=== PATIENT | female | born 1985 | race Caucasian/White ===

== ENCOUNTER 2016-07-10 17:18 | Emergency (ER) | payer OTHER ==
--- NOTE | 2016-07-10 19:36 | ED ORDER SUMMARY ---
..... Patient: MAYCOL POTTS OrderSheet [facility] VisitID: [id number] [place] [address] 31y, F Registration Date/Time: 07/10/2016 ORDER SHEET Weight: 90.7 kg (stated) Allergies: No Known Drug Allergy GENERAL ORDERS: CBC w Diff Urgent (17:43 07/10/2016 EKoroleva P.A.-C) (Ack 17:56 LTapper) (18:16 SReitz R.N.) UA-Culture if indicated Urgent (17:43 07/10/2016 EKoroleva P.A.-C) (Ack 17:56 LTapper) (18:16 SReitz R.N.) CMP Urgent (17:43 07/10/2016 EKoroleva P.A.-C) (Ack 17:56 LTapper) (18:16 SReitz R.N.) Serum Quantitative Urgent (17:43 07/10/2016 EKoroleva P.A.-C) (Ack 17:56 LTapper) (18:16 SReitz R.N.) Type & Rh Urgent (17:43 07/10/2016 EKoroleva P.A.-C) (Ack 17:56 LTapper) (18:16 SReitz R.N.) Wet Prep (Cervix) (c) Urgent (19:03 07/10/2016 EKoroleva P.A.-C) (Ack 19:05 LTapper) (19:05 LTapper) GC/Chlamydia (Cervix) (c) Urgent (19:03 07/10/2016 EKoroleva P.A.-C) (Ack 19:05 LTapper) (19:05 LTapper) MEDICATION ORDERS: IV FLUIDS: ORDER SHEET NOTES: [Electronically signed by Jaclyn Lindsay R.N. (19:42 07/10/2016)] [Electronically signed by Lisa Thomas.A.-C (19:48 07/10/2016)] [Electronically locked/signed by Jaclyn Lindsay R.N. (19:42 07/10/2016)]
--- NOTE | 2016-07-10 19:36 | ED NURSING NOTES ---
Clinical Report - Nurses [facility] [address] [place] [address] 07/10/2016 17:19 Patient: MAYCOL POTTS TRIAGE Triage time 17:29. Acuity: LEVEL 3. Chief Complaint: ABDOMINAL CRAMPS and SPOTTING. Alert. No acute distress. SEPSIS SCREEN: Sepsis Screen. Negative (no infection suspected/documented). MARVEL COMA SCORE: Marvel Coma Scale: 15- eyes open spontaneously (4); best verbal response- oriented x 4 (5); best motor response- obeys commands (6). --17:33 Tanvi Ibanez R.N. 17:32 07/10/16. BP: 131/67. HR: 100. RR: 18. O2 saturation: 98%. Temp: 98.6 F. Pain level now 05/11. --17:33 Tanvi Ibanez R.N. Weight: 90.7 kg stated. Height/Length: 64 inches Per Patient. BMI: 34.3. --17:30 Tanvi Ibanez R.N. Medications Vitamins Oral. --17:31 Tanvi Ibanez R.N. Allergies No Known Drug Allergy. --17:31 Tanvi Ibanez R.N. History Arrived by private vehicle. Historian: patient. Unaccompanied. Primary physician (Sheela Tyson). Onset. (3 days ago cramping started and today spotting started). 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 PAST MEDICAL HX: Immunizations: up-to-date. Confirmed . In 1st trimester. confirmed with urine test. Has had care in clinic. G 2. P 1. Ab 0. SOCIAL HX: Never smoker. No alcohol use or drug use. ABUSE ASSESSMENT: Abuse assessment: The patient was asked "Do you feel safe in your home?" and "Has anyone hurt you or threatened to hurt you?". No report of abuse. SELF HARM ASSESSMENT: A self harm assessment was performed. The patient answered "no" to the question "Do you have thoughts of harming or killing yourself?" and "Have you recently had thoughts about harming or killing others?". NUTRITIONAL RISK ASSESSMENT: The nutritional risk assessment revealed no deficiencies. FUNCTIONAL ASSESSMENT: Functional assessment: no impairments noted. LEARNING NEEDS ASSESSMENT: The learning needs assessment revealed no barriers. --17:33 Tanvi Ibanez R.N. PROBLEMS: Nephropathy. Renal Colic. Abdominal Pain. Ureterolithiasis. UTI - Urinary Tract Infection. Urinary Calculi. Nephrolithiasis. --17:31 Tanvi Ibanez R.N. ADDITIONAL SURGERIES: . Kidney stint placed . Lithotripsy. Tonsillectomy. --17:31 Tanvi Ibanez R.N. Interventions ID band on patient. Ambulatory. --17:33 Tanvi Ibanez R.N. PHYSICAL ASSESSMENT Ambulatory to room. GENERAL / NEURO / PSYCH: Alert. Appears in no acute distress. HEENT: Mucous membranes are pink. RESPIRATORY: Respirations not labored. CVS: Capillary refill less than 2 seconds. GI / : Abdomen soft and nontender. SKIN: Skin is warm and dry. --17:33 Tanvi Ibanez R.N. NURSING PROGRESS NOTES Patient gowned. Head of bed elevated. Two patient identifiers checked. Call light placed in reach. Side rails up x 2. Bed placed in lowest position. Brakes of bed on. Patient ready for evaluation- chart flagged. --17:33 Tanvi Ibanez R.N. PELVIC EXAM: Pelvic exam performed by PA. Assisted by one nurse. Preparation: pelvic tray. Status post-procedure: she was stable. Total time of assist / procedure: 15 minutes. --17:42 Tanvi Ibanez R.N. PELVIC EXAM: Procedure. Specimens collected and sent to lab: GC, chlamydia and wet prep. --17:43 Tanvi Ibanez R.N. 18:10. Patient ID band checked for patient name, birthdate and medical record number: patient confirmed. Instructions provided to collect clean catch urine and patient verbalized understanding. Clean catch urine collected with return of yellow-colored clear urine; sample sent to lab for urinalysis. Specimen labeled in the presence of the patient. --18:16 Tanvi Ibanez R.N. Care transferred and report given (to Jaclyn Huerta RN). --19:10 Tanvi Ibanez R.N. 19:22 07/10/16. Patient waiting for disposition. --19:22 Jaclyn Lindsay R.N. 19:22 07/10/16. BP: 137/67. HR: 98. RR: 16. O2 saturation: 100%. Pain level now 0/10. --19:22 Jaclyn Lindsay R.N. DISPOSITION / DISCHARGE 19:42 07/10/16. Departure time: 19:42 Jul 10 2016. Condition at departure: improved and stable. The goals identified in the patient's plan of care were met. No learning barriers present. Discharge instructions provided and reviewed with the patient. Reviewed medication(s) side effects, precautions, dosing and course information. Prescription(s) given to the patient. Reviewed referral to an vessel liner for followup. Summary of care provided to patient via paper. Patient verbalized understanding. Written instructions provided in Lithuanian. The patient was discharged home and unaccompanied at time of discharge. She left the Emergency Department ambulatory and via private vehicle. Patient driving. --19:42 Jaclyn Lindsay R.N. 19:20 07/10/16. BP: 137/67. HR: 98. RR: 16. O2 saturation: 100%. Pain level now 0/10. 17:32 07/10/16. BP: 131/67. HR: 100. RR: 18. O2 saturation: 98%. Temp: 98.6 F. Pain level now 1/10. --19:42 Jaclyn Lindsay R.N. Locked/Released at 07/10/2016 19:42 by Jaclyn Lindsay R.N.
--- NOTE | 2016-07-10 19:36 | ED NURSING NOTES ---
Clinical Report - Nurses [facility] [address] [place] [address] 07/10/2016 17:19 Patient: MAYCOL POTTS TRIAGE Triage time 17:29. Acuity: LEVEL 3. Chief Complaint: ABDOMINAL CRAMPS and SPOTTING. Alert. No acute distress. SEPSIS SCREEN: Sepsis Screen. Negative (no infection suspected/documented). MARVEL COMA SCORE: Marvel Coma Scale: 15- eyes open spontaneously (4); best verbal response- oriented x 4 (5); best motor response- obeys commands (6). --17:33 Tanvi Ibanez R.N. 17:32 07/10/16. BP: 131/67. HR: 100. RR: 18. O2 saturation: 98%. Temp: 98.6 F. Pain level now 05/11. --17:33 Tanvi Ibanez R.N. Weight: 90.7 kg stated. Height/Length: 64 inches Per Patient. BMI: 34.3. --17:30 Tanvi Ibanez R.N. Medications Vitamins Oral. --17:31 Tanvi Ibanez R.N. Allergies No Known Drug Allergy. --17:31 Tanvi Ibanez R.N. History Arrived by private vehicle. Historian: patient. Unaccompanied. Primary physician (Sheela Tyson). Onset. (3 days ago cramping started and today spotting started). 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 PAST MEDICAL HX: Immunizations: up-to-date. Confirmed . In 1st trimester. confirmed with urine test. Has had care in clinic. G 2. P 1. Ab 0. SOCIAL HX: Never smoker. No alcohol use or drug use. ABUSE ASSESSMENT: Abuse assessment: The patient was asked "Do you feel safe in your home?" and "Has anyone hurt you or threatened to hurt you?". No report of abuse. SELF HARM ASSESSMENT: A self harm assessment was performed. The patient answered "no" to the question "Do you have thoughts of harming or killing yourself?" and "Have you recently had thoughts about harming or killing others?". NUTRITIONAL RISK ASSESSMENT: The nutritional risk assessment revealed no deficiencies. FUNCTIONAL ASSESSMENT: Functional assessment: no impairments noted. LEARNING NEEDS ASSESSMENT: The learning needs assessment revealed no barriers. --17:33 Tanvi Ibanez R.N. PROBLEMS: Nephropathy. Renal Colic. Abdominal Pain. Ureterolithiasis. UTI - Urinary Tract Infection. Urinary Calculi. Nephrolithiasis. --17:31 Tanvi Ibanez R.N. ADDITIONAL SURGERIES: . Kidney stint placed . Lithotripsy. Tonsillectomy. --17:31 Tanvi Ibanez R.N. Interventions ID band on patient. Ambulatory. --17:33 Tanvi Ibanez R.N. PHYSICAL ASSESSMENT Ambulatory to room. GENERAL / NEURO / PSYCH: Alert. Appears in no acute distress. HEENT: Mucous membranes are pink. RESPIRATORY: Respirations not labored. CVS: Capillary refill less than 2 seconds. GI / : Abdomen soft and nontender. SKIN: Skin is warm and dry. --17:33 Tanvi Ibanez R.N. NURSING PROGRESS NOTES Patient gowned. Head of bed elevated. Two patient identifiers checked. Call light placed in reach. Side rails up x 2. Bed placed in lowest position. Brakes of bed on. Patient ready for evaluation- chart flagged. --17:33 Tanvi Ibanez R.N. PELVIC EXAM: Pelvic exam performed by PA. Assisted by one nurse. Preparation: pelvic tray. Status post-procedure: she was stable. Total time of assist / procedure: 15 minutes. --17:42 Tanvi Ibanez R.N. PELVIC EXAM: Procedure. Specimens collected and sent to lab: GC, chlamydia and wet prep. --17:43 Tanvi Ibanez R.N. 18:10. Patient ID band checked for patient name, birthdate and medical record number: patient confirmed. Instructions provided to collect clean catch urine and patient verbalized understanding. Clean catch urine collected with return of yellow-colored clear urine; sample sent to lab for urinalysis. Specimen labeled in the presence of the patient. --18:16 Tanvi Ibanez R.N. Care transferred and report given (to Jaclyn Huerta RN). --19:10 Tanvi Ibanez R.N. 19:22 07/10/16. Patient waiting for disposition. --19:22 Jaclyn Lindsay R.N. 19:22 07/10/16. BP: 137/67. HR: 98. RR: 16. O2 saturation: 100%. Pain level now 0/10. --19:22 Jaclyn Lindsay R.N. DISPOSITION / DISCHARGE 19:42 07/10/16. Departure time: 19:42 Jul 10 2016. Condition at departure: improved and stable. The goals identified in the patient's plan of care were met. No learning barriers present. Discharge instructions provided and reviewed with the patient. Reviewed medication(s) side effects, precautions, dosing and course information. Prescription(s) given to the patient. Reviewed referral to an hydraulic miner blasting for followup. Summary of care provided to patient via paper. Patient verbalized understanding. Written instructions provided in Danish. The patient was discharged home and unaccompanied at time of discharge. She left the Emergency Department ambulatory and via private vehicle. Patient driving. --19:42 Jaclyn Lindsay R.N. 19:20 07/10/16. BP: 137/67. HR: 98. RR: 16. O2 saturation: 100%. Pain level now 0/10. 17:32 07/10/16. BP: 131/67. HR: 100. RR: 18. O2 saturation: 98%. Temp: 98.6 F. Pain level now 1/10. --19:42 Jaclyn Lindsay R.N. Locked/Released at 07/10/2016 19:42 by Jaclyn Lindsay R.N.
--- NOTE | 2016-07-10 19:36 | ED CLINICAL REPORT ---
Clinical Report - Physicians/Mid Levels [facility] [address] [place] [address] 07/10/2016 17:19 Patient: MAYCOL POTTS Time Seen: 17:27 Jul 10 2016. Arrived- By private vehicle. Historian- patient. HISTORY OF PRESENT ILLNESS Chief Complaint: VAGINAL BLEEDING. This started just prior to arrival and still present. The symptoms are described as mild. The patient has had pelvic pain (off/ on, none now). She has had pain with urination. No hematuria. Last normal menstrual period- May 31. ( with spotting/ light in nature, cramping, and some back pain (h/o back pain with nephrolithiasis), spotting and having to use less than a pad a day.). REVIEW OF SYSTEMS No nausea, diarrhea or headache. All systems otherwise negative, except as recorded above. SOCIAL HISTORY Never smoker. No alcohol use or drug use. ADDITIONAL NOTES The nursing notes have been reviewed. PHYSICAL EXAM Vital Signs: 07/10/2016 17:32 BP: 131/67. HR: 100. RR: 18. O2 saturation: 98%. Temp: 98.6 F. Appearance: Alert. HEENT: Normal external inspection. ENT: Pharynx normal. Neck: Neck supple. No thyromegaly. Respiratory: No respiratory distress. Breath sounds normal. Abdomen: Soft and nontender. Bowel sounds normal. No abdominal tenderness. : Speculum and bimanual exam performed. External inspection normal. Speculum exam normal. No vaginal bleeding. No herpes-like lesions. Bimanual exam normal. LABS, X-RAYS, AND EKG Laboratory Tests: UA-Culture if indicated: (SARAH: 07/10/2016 18:05) ( MsgRcvd 07/10/2016 18:35) Final results Test Result Flag Units (Reference) URINE COLOR RED URINE APPEARANCE SL CLOUDY URINE GLUCOSE NEGATIVE (NEGATIVE) URINE BILIRUBIN NEGATIVE (NEGATIVE) URINE KETONE NEGATIVE (NEGATIVE) URINE SPECIFIC GRAVITY 1.015 (1.010-1.030) URINE PH 7.5 (5.0-8.0) URINE PROTEIN NEGATIVE (NEGATIVE) URINE UROBILINOGEN 1.0 EU/dL (0.2-1.0) URINE NITRITE NEGATIVE (NEGATIVE) URINE BLOOD 2+ (NEGATIVE) URINE LEUK ESTERASE NEGATIVE (NEGATIVE) URINE RBC >100 (TNTC) rbc/hpf (0-1) URINE WBC 1-3 wbc/hpf (0-1) URINE EPITHELIAL CELLS 1-3 EPI/hpf (0-5) URINE BACTERIA NONE SEEN (NONE SEEN) URINE COMMENT CULT NOT INDICATED URINE CULTURES ARE SET-UP BASED ON THE FOLLOWING CRITERIA:POSITIVE NITRITEPOSITIVE LEUKOCYTE ESTERASEGREATER THAN 10 WHITE BLOOD CELLSMODERATE (2+) OR GREATER BACTERIA CBC w Diff: (SARAH: 07/10/2016 18:05) ( MsgRcvd 07/10/2016 18:22) Final results Test Result Flag Units (Reference) WHITE BLOOD COUNT 10.5 K/uL (4.5-11.5) RED BLOOD COUNT 4.19 M/uL (4.00-5.20) HEMOGLOBIN 13.0 gm/dL (12.0-16.0) HEMATOCRIT 38.3 % (36.0-46.0) MEAN CELL VOLUME 91 fL (80-100) MEAN CORPUSCULAR HGB 31 pg (26-34) MEAN CORPUSCULAR HGB CONC 34 g/dL (31-37) RED CELL DISTRIBUTION WIDTH 14.5 % (11.6-14.8) PLATELET COUNT 159 K/uL (150-400) NEUTROPHIL % 68.9 % (50-75) LYMPH % 21.9 L % (25-40) MONO % 7.5 % (3-14) EOSINOPHIL % 1.4 % (0-4) BASOPHIL % 0.3 % (0-2) CMP: (SARAH: 07/10/2016 18:05) ( MsgRcvd 07/10/2016 19:09) Final results Test Result Flag Units (Reference) GLUCOSE 104 mg/dL (70-110) BUN 14 mg/dL (7-18) CREATININE 0.8 mg/dL (0.6-1.3) Estimated GFR >60 mL/min Estimated GFR- >60 mL/min Note: Persistent reduction over 3 months in eGFR<60 mL/min/1.73 m2 defines CKD. Patients with eGFR values>=60 mL/min/1.73 m2 may also have CKD if evidence ofpersistent proteinuria. Additional information may be foundat www.kidney.org. SODIUM 138 mmol/L (136-145) POTASSIUM 3.8 mmol/L (3.5-5.1) CHLORIDE 103 mmol/L (98-107) CARBON DIOXIDE 27 mmol/L (21-32) CALCIUM 8.3 L mg/dL (8.5-10.1) TOTAL PROTEIN 7.0 g/dL (6.4-8.2) ALBUMIN 3.4 g/dL (3.3-5.0) BILIRUBIN, TOTAL 0.6 mg/dL (0.0-1.0) ALKALINE PHOSPHATASE 63 U/L (46-116) AST (SGOT) 20 U/L (15-37) ALT (SGPT) 40 U/L (12-78) BETA HCG, QUANTITATIVE 2766 mIU/mL REFERENCE RANGE:Adult Males: <2 mIU/mLNon- Females: <6 mIU/mL Females:Approximate Approximate hCGGestational Age Range (mIU/mL) 0-1 week 0-501-2 weeks 40-3002-3 weeks 100-75243-2 weeks 500-75311-9 months 5,000-200,0002-3 months 10,000-100,0002nd trimester 3,000-50,0003rd trimester 1,000-50,000 Wet Prep: (SARAH: 07/10/2016 17:45) ( [facility] 07/10/2016 19:16) Final results SPECIMEN DESCRIPTION: C Test Result Flag Units (Reference) WET MOUNT CLUE CELLS:: NONE EPITHELIAL CELLS: FEW -- SOURCE?: CERVIX WHITE BLOOD CELLS: FEW TRICHOMONAS:: NONE -- YEAST:: NONE Type & Rh: (SARAH: 07/10/2016 18:05) ( [facility] 07/10/2016 19:29) Final results Test Result Flag Units (Reference) PATIENT BLOOD TYPE B Positive . PROGRESS AND PROCEDURES Course of Care: Patient at this time has no bleeding, no pelvic pain. Patient is very stable. Patient in no distress. She does have signs of hematuria, which is chronic for her, denies any flank pain at this time. No signs of septic nephrolithiasis. Warning signs for patient given. Patien twith no active bleeding, with the positive blood type. To establish primary care, as well as DISPENSING OPTICIAN APPRENTICE. 07/10/2016 19:22 BP: 137/67. HR: 98. RR: 16. O2 saturation: 100%. Patient is stable. Symptoms better. Patient/family counseled. Disposition: Discharged. Condition: good. CLINICAL IMPRESSION Nephrolithiasis. Early, first trimester intrauterine . INSTRUCTIONS (B positive BETA HCG, QUANTITATIVE 2766 Hydrate well IF FEVERS RETURN). Warnings: Further evaluation is necessary. Prescription Medications: Zofran (orally disintegrating tablets) 4 mg: take 1 orally every 6 hours for 3 days as needed for nausea. Dispense ten (10). No refill. Substitution is permissible. OTC Medications: Take acetaminophen (Tylenol, Datril, etc.) according to label instructions. Available over the counter. Follow-up: Follow up with a specialist. Follow-up with: Trinh Franco DO, hog man, , [facility], [address] [place] [address] Follow up. Call for the next available appointment. (Electronically signed by Lisa Thomas P.A.-C 07/10/2016 19:48)
--- NOTE | 2016-07-10 19:36 | ED ORDER SUMMARY ---
..... Patient: MAYCOL POTTS OrderSheet [facility] VisitID: [id number] [place] [address] 31y, F Registration Date/Time: 07/10/2016 ORDER SHEET Weight: 90.7 kg (stated) Allergies: No Known Drug Allergy GENERAL ORDERS: CBC w Diff Urgent (17:43 07/10/2016 EKoroleva P.A.-C) (Ack 17:56 LTapper) (18:16 SReitz R.N.) UA-Culture if indicated Urgent (17:43 07/10/2016 EKoroleva P.A.-C) (Ack 17:56 LTapper) (18:16 SReitz R.N.) CMP Urgent (17:43 07/10/2016 EKoroleva P.A.-C) (Ack 17:56 LTapper) (18:16 SReitz R.N.) Serum Quantitative Urgent (17:43 07/10/2016 EKoroleva P.A.-C) (Ack 17:56 LTapper) (18:16 SReitz R.N.) Type & Rh Urgent (17:43 07/10/2016 EKoroleva P.A.-C) (Ack 17:56 LTapper) (18:16 SReitz R.N.) Wet Prep (Cervix) (c) Urgent (19:03 07/10/2016 EKoroleva P.A.-C) (Ack 19:05 LTapper) (19:05 LTapper) GC/Chlamydia (Cervix) (c) Urgent (19:03 07/10/2016 EKoroleva P.A.-C) (Ack 19:05 LTapper) (19:05 LTapper) MEDICATION ORDERS: IV FLUIDS: ORDER SHEET NOTES: [Electronically signed by Jaclyn Lindsay R.N. (19:42 07/10/2016)] [Electronically signed by Lisa Thomas.A.-C (19:48 07/10/2016)] [Electronically locked/signed by Jaclyn Lindsay R.N. (19:42 07/10/2016)]
--- NOTE | 2016-07-10 19:36 | ED CLINICAL REPORT ---
Clinical Report - Physicians/Mid Levels [facility] [address] [place] [address] 07/10/2016 17:19 Patient: MAYCOL POTTS Time Seen: 17:27 Jul 10 2016. Arrived- By private vehicle. Historian- patient. HISTORY OF PRESENT ILLNESS Chief Complaint: VAGINAL BLEEDING. This started just prior to arrival and still present. The symptoms are described as mild. The patient has had pelvic pain (off/ on, none now). She has had pain with urination. No hematuria. Last normal menstrual period- May 31. ( with spotting/ light in nature, cramping, and some back pain (h/o back pain with nephrolithiasis), spotting and having to use less than a pad a day.). REVIEW OF SYSTEMS No nausea, diarrhea or headache. All systems otherwise negative, except as recorded above. SOCIAL HISTORY Never smoker. No alcohol use or drug use. ADDITIONAL NOTES The nursing notes have been reviewed. PHYSICAL EXAM Vital Signs: 07/10/2016 17:32 BP: 131/67. HR: 100. RR: 18. O2 saturation: 98%. Temp: 98.6 F. Appearance: Alert. HEENT: Normal external inspection. ENT: Pharynx normal. Neck: Neck supple. No thyromegaly. Respiratory: No respiratory distress. Breath sounds normal. Abdomen: Soft and nontender. Bowel sounds normal. No abdominal tenderness. : Speculum and bimanual exam performed. External inspection normal. Speculum exam normal. No vaginal bleeding. No herpes-like lesions. Bimanual exam normal. LABS, X-RAYS, AND EKG Laboratory Tests: UA-Culture if indicated: (SARAH: 07/10/2016 18:05) ( MsgRcvd 07/10/2016 18:35) Final results Test Result Flag Units (Reference) URINE COLOR RED URINE APPEARANCE SL CLOUDY URINE GLUCOSE NEGATIVE (NEGATIVE) URINE BILIRUBIN NEGATIVE (NEGATIVE) URINE KETONE NEGATIVE (NEGATIVE) URINE SPECIFIC GRAVITY 1.015 (1.010-1.030) URINE PH 7.5 (5.0-8.0) URINE PROTEIN NEGATIVE (NEGATIVE) URINE UROBILINOGEN 1.0 EU/dL (0.2-1.0) URINE NITRITE NEGATIVE (NEGATIVE) URINE BLOOD 2+ (NEGATIVE) URINE LEUK ESTERASE NEGATIVE (NEGATIVE) URINE RBC >100 (TNTC) rbc/hpf (0-1) URINE WBC 1-3 wbc/hpf (0-1) URINE EPITHELIAL CELLS 1-3 EPI/hpf (0-5) URINE BACTERIA NONE SEEN (NONE SEEN) URINE COMMENT CULT NOT INDICATED URINE CULTURES ARE SET-UP BASED ON THE FOLLOWING CRITERIA:POSITIVE NITRITEPOSITIVE LEUKOCYTE ESTERASEGREATER THAN 10 WHITE BLOOD CELLSMODERATE (2+) OR GREATER BACTERIA CBC w Diff: (SARAH: 07/10/2016 18:05) ( MsgRcvd 07/10/2016 18:22) Final results Test Result Flag Units (Reference) WHITE BLOOD COUNT 10.5 K/uL (4.5-11.5) RED BLOOD COUNT 4.19 M/uL (4.00-5.20) HEMOGLOBIN 13.0 gm/dL (12.0-16.0) HEMATOCRIT 38.3 % (36.0-46.0) MEAN CELL VOLUME 91 fL (80-100) MEAN CORPUSCULAR HGB 31 pg (26-34) MEAN CORPUSCULAR HGB CONC 34 g/dL (31-37) RED CELL DISTRIBUTION WIDTH 14.5 % (11.6-14.8) PLATELET COUNT 159 K/uL (150-400) NEUTROPHIL % 68.9 % (50-75) LYMPH % 21.9 L % (25-40) MONO % 7.5 % (3-14) EOSINOPHIL % 1.4 % (0-4) BASOPHIL % 0.3 % (0-2) CMP: (SARAH: 07/10/2016 18:05) ( MsgRcvd 07/10/2016 19:09) Final results Test Result Flag Units (Reference) GLUCOSE 104 mg/dL (70-110) BUN 14 mg/dL (7-18) CREATININE 0.8 mg/dL (0.6-1.3) Estimated GFR >60 mL/min Estimated GFR- >60 mL/min Note: Persistent reduction over 3 months in eGFR<60 mL/min/1.73 m2 defines CKD. Patients with eGFR values>=60 mL/min/1.73 m2 may also have CKD if evidence ofpersistent proteinuria. Additional information may be foundat www.kidney.org. SODIUM 138 mmol/L (136-145) POTASSIUM 3.8 mmol/L (3.5-5.1) CHLORIDE 103 mmol/L (98-107) CARBON DIOXIDE 27 mmol/L (21-32) CALCIUM 8.3 L mg/dL (8.5-10.1) TOTAL PROTEIN 7.0 g/dL (6.4-8.2) ALBUMIN 3.4 g/dL (3.3-5.0) BILIRUBIN, TOTAL 0.6 mg/dL (0.0-1.0) ALKALINE PHOSPHATASE 63 U/L (46-116) AST (SGOT) 20 U/L (15-37) ALT (SGPT) 40 U/L (12-78) BETA HCG, QUANTITATIVE 2766 mIU/mL REFERENCE RANGE:Adult Males: <2 mIU/mLNon- Females: <6 mIU/mL Females:Approximate Approximate hCGGestational Age Range (mIU/mL) 0-1 week 0-501-2 weeks 40-3002-3 weeks 100-77010-8 weeks 500-25659-4 months 5,000-200,0002-3 months 10,000-100,0002nd trimester 3,000-50,0003rd trimester 1,000-50,000 Wet Prep: (SARAH: 07/10/2016 17:45) [facility] Final results SPECIMEN DESCRIPTION: C Test Result Flag Units (Reference) WET MOUNT CLUE CELLS:: NONE EPITHELIAL CELLS: FEW -- SOURCE?: CERVIX WHITE BLOOD CELLS: FEW TRICHOMONAS:: NONE -- YEAST:: NONE Type & Rh: (SARAH: 07/10/2016 18:05) ( [facility]10[facility] 19:29) Final results Test Result Flag Units (Reference) PATIENT BLOOD TYPE B Positive . PROGRESS AND PROCEDURES Course of Care: Patient at this time has no bleeding, no pelvic pain. Patient is very stable. Patient in no distress. She does have signs of hematuria, which is chronic for her, denies any flank pain at this time. No signs of septic nephrolithiasis. Warning signs for patient given. Patien twith no active bleeding, with the positive blood type. To establish primary care, as well as CLINICAL CARE MANAGER. 07/10/2016 19:22 BP: 137/67. HR: 98. RR: 16. O2 saturation: 100%. Patient is stable. Symptoms better. Patient/family counseled. Disposition: Discharged. Condition: good. CLINICAL IMPRESSION Nephrolithiasis. Early, first trimester intrauterine . INSTRUCTIONS (B positive BETA HCG, QUANTITATIVE 2766 Hydrate well IF FEVERS RETURN). Warnings: Further evaluation is necessary. Prescription Medications: Zofran (orally disintegrating tablets) 4 mg: take 1 orally every 6 hours for 3 days as needed for nausea. Dispense ten (10). No refill. Substitution is permissible. OTC Medications: Take acetaminophen (Tylenol, Datril, etc.) according to label instructions. Available over the counter. Follow-up: Follow up with a specialist. Follow-up with: Trinh Franco DO, coal crusher operator, , [facility], [address] [place] [address] Follow up. Call for the next available appointment. (Electronically signed by Lisa Thomas P.A.-C 07/10/2016 19:48)
--- NOTE | 2016-07-10 19:48 | ED DISCHARGE INSTRUCTIONS ---
Patient: MAYCOL POTTS General Instructions [facility] VisitID: [id number] [address] [place] [phone] 31y, F Registration Date/Time: 07/10/2016 Nephrolithiasis. Early, first trimester intrauterine . INSTRUCTIONS (B positive BETA HCG, QUANTITATIVE 2766 Hydrate well IF FEVERS RETURN). Warnings: Further evaluation is necessary. Prescription Medications: Zofran (orally disintegrating tablets) 4 mg: take 1 orally every 6 hours for 3 days as needed for nausea. Dispense ten (10). No refill. Substitution is permissible. OTC Medications: Take acetaminophen (Tylenol, Datril, etc.) according to label instructions. Available over the counter. Follow-up: Follow up with a specialist. Follow-up with: Trinh Franco DO, continuous improvement coach, , [facility], [address] [place] [address] Follow up. Call for the next available appointment. ADDITIONAL INFORMATION Blood In The Urine Blood in the urine ("hematuria") has many possible causes. If it occurs after an injury (such as a car accident or fall), it is most often a sign of bruising to the kidney or bladder. Common medical causes of blood in the urine include urinary tract infection, kidney stone, inflammation, tumors, or certain other diseases of the kidney or bladder. Menstruation can cause blood to appear in the urine sample, although it is not coming from the urinary tract. If only a trace amount of blood is present, it will show up on the urine test, even though the urine may be yellow and not pink or red. This may occur with any of the above conditions, as well as heavy exercise or high fever. In this case, your doctor may want to repeat the urine test on another day. This will show if the blood is still present. If so, then other tests can be done to find out the cause. Home Care: If your urine does not appear bloody (pink, brown or red) then you do not need to restrict your activity in any way. If you can see blood in your urine, rest and avoid heavy exertion until your next exam. Do not use aspirin or anti-inflammatory medicine like ibuprofen (Motrin, Advil) or naproxen (Naprosyn, Aleve). These thin the blood and may increase bleeding. Follow Up with your doctor or as advised by our staff. If you were injured and had blood in your urine, you should have a repeat urine test in 1-2 days. Contact your doctor or return to this facility for this test. [NOTE: A radiologist will review any X-rays that were taken. We will notify you of any new findings that may affect your care.] Get Prompt Medical Attention if any of the following occur: Bright red blood or blood clots in the urine (if a new symptom) Weakness, dizziness or fainting New groin, abdominal or back pain Fever of 100.4F (38C) or higher, or as directed by your healthcare provider Repeated vomiting Bleeding from nose, gums or easy bruising Your exam today shows that you are . During , it is normal to develop tender swollen breasts, frequent urination and mild vaginal discharge. During the first three months, nausea is common. Guidelines For A Healthy : To ensure that your baby is born healthy there are certain things that you can do: When you feel tired, you should REST. This is especially true in the later months of . Your body needs more FLUIDS than you may be used to: You should drink 8-10 glasses of juice, milk or water. Eat well-balanced MEALS at regular intervals to supply your body with enough protein. You can expect a total weight gain of about 30 pounds during the . Do not try to diet or lose weight while you are . Because of the extra nutritional needs during , take one VITAMIN daily. Do not take any other MEDICINE during your (prescribed or [id number]-[id number]) unless your doctor specifically recommends this. Many drugs can have harmful effects on the growing baby. If NAUSEA or VOMITING become a problem, avoid greasy and fried foods. Eat several smaller meals throughout the day rather than three large meals. If you SMOKE, you must stop. The nicotine you breathe in goes right to the baby. Stay away from ALCOHOL, even in moderate amounts. Daily drinking will harm your baby and can cause permanent brain damage. RECREATIONAL DRUGS are harmful, especially cocaine, crack, and heroin. Marijuana should also be avoided. If you were using recreational drugs or prescribed medicine when you found out that you were , talk to your doctor about possible effects on the fetus. Follow Up: Call to arrange for care. This can be provided by your family doctor, an cigar inspector ( specialist) or a primary care clinic. Get Prompt Medical Attention if any of the following occur: Vaginal bleeding Moderate or severe abdominal or back pain Excessive vomiting, unable to keep any fluids down for six hours Burning with urination Headache, dizziness or rapid weight gain Your exam today shows that you are . During , it is normal to develop tender swollen breasts, frequent urination and mild vaginal discharge. During the first three months, nausea is common. Guidelines For A Healthy : To ensure that your baby is born healthy there are certain things that you can do: When you feel tired, you should REST. This is especially true in the later months of . Your body needs more FLUIDS than you may be used to: You should drink 8-10 glasses of juice, milk or water. Eat well-balanced MEALS at regular intervals to supply your body with enough protein. You can expect a total weight gain of about 30 pounds during the . Do not try to diet or lose weight while you are . Because of the extra nutritional needs during , take one VITAMIN daily. Do not take any other MEDICINE during your (prescribed or [id number]-ewm-cpiajco) unless your doctor specifically recommends this. Many drugs can have harmful effects on the growing baby. If NAUSEA or VOMITING become a problem, avoid greasy and fried foods. Eat several smaller meals throughout the day rather than three large meals. If you SMOKE, you must stop. The nicotine you breathe in goes right to the baby. Stay away from ALCOHOL, even in moderate amounts. Daily drinking will harm your baby and can cause permanent brain damage. RECREATIONAL DRUGS are harmful, especially cocaine, crack, and heroin. Marijuana should also be avoided. If you were using recreational drugs or prescribed medicine when you found out that you were , talk to your doctor about possible effects on the fetus. Follow Up: Call to arrange for care. This can be provided by your family doctor, an cigar inspector ( specialist) or a primary care clinic. Get Prompt Medical Attention if any of the following occur: Vaginal bleeding Moderate or severe abdominal or back pain Excessive vomiting, unable to keep any fluids down for six hours Burning with urination Headache, dizziness or rapid weight gain You have been given the following additional information: Hematuria , New Dx , New Dx (Electronically signed by Lisa Thomas P.A.-C 07/10/2016 19:48)
--- NOTE | 2016-07-10 19:48 | ED MED RECONCILIATION SUMMARY ---
Patient: MAYCOL POTTS Medication Reconciliation Report [facility] VisitID: [id number] [address] [place] [address] 31y, F Registration Date/Time: 07/10/2016 Weight: 90.7 kg Height/Length: 64 in. BMI: 34.3 ALLERGIES: No Known Drug Allergy The patient's Home Medications are listed below: THE FOLLOWING MEDICATIONS NEED TO BE RECONCILED: Vitamins Oral The source(s) of the original Home Medication information: Not obtained. The following Medications were given to the patient in the Emergency Department: None. The following Medications were prescribed to the patient: Take acetaminophen (Tylenol, Datril, etc.) according to label instructions. Available over the counter. -- Lisa Thomas, P.A.-C Zofran (orally disintegrating tablets) 4 mg: take 1 orally every 6 hours for 3 days as needed for nausea. Dispense ten (10). No refill. Substitution is permissible. -- Lisa Thomas, P.A.-C
--- NOTE | 2016-07-10 19:48 | ED MAR SUMMARY ---
..... Medication Administration Record [facility] [address] [place], [place] [id number] Patient: MAYCOL POTTS Visit ID: [id number] 31y, F Weight: 90.7 kg Height/Length: 64 in BMI: 34.3 ALLERGIES: No Known Drug Allergy
--- NOTE | 2016-07-10 19:48 | ED DISCHARGE INSTRUCTIONS ---
Patient: MAYCOL POTTS General Instructions [facility] VisitID: [id number] [place] [phone] 31y, F Registration Date/Time: 07/10/2016 Nephrolithiasis. Early, first trimester intrauterine . INSTRUCTIONS (B positive BETA HCG, QUANTITATIVE 2766 Hydrate well IF FEVERS RETURN). Warnings: Further evaluation is necessary. Prescription Medications: Zofran (orally disintegrating tablets) 4 mg: take 1 orally every 6 hours for 3 days as needed for nausea. Dispense ten (10). No refill. Substitution is permissible. OTC Medications: Take acetaminophen (Tylenol, Datril, etc.) according to label instructions. Available over the counter. Follow-up: Follow up with a specialist. Follow-up with: Trinh Franco DO, waste treatment operator, , [facility], [address] [place] [address] Follow up. Call for the next available appointment. ADDITIONAL INFORMATION Blood In The Urine Blood in the urine ("hematuria") has many possible causes. If it occurs after an injury (such as a car accident or fall), it is most often a sign of bruising to the kidney or bladder. Common medical causes of blood in the urine include urinary tract infection, kidney stone, inflammation, tumors, or certain other diseases of the kidney or bladder. Menstruation can cause blood to appear in the urine sample, although it is not coming from the urinary tract. If only a trace amount of blood is present, it will show up on the urine test, even though the urine may be yellow and not pink or red. This may occur with any of the above conditions, as well as heavy exercise or high fever. In this case, your doctor may want to repeat the urine test on another day. This will show if the blood is still present. If so, then other tests can be done to find out the cause. Home Care: If your urine does not appear bloody (pink, brown or red) then you do not need to restrict your activity in any way. If you can see blood in your urine, rest and avoid heavy exertion until your next exam. Do not use aspirin or anti-inflammatory medicine like ibuprofen (Motrin, Advil) or naproxen (Naprosyn, Aleve). These thin the blood and may increase bleeding. Follow Up with your doctor or as advised by our staff. If you were injured and had blood in your urine, you should have a repeat urine test in 1-2 days. Contact your doctor or return to this facility for this test. [NOTE: A radiologist will review any X-rays that were taken. We will notify you of any new findings that may affect your care.] Get Prompt Medical Attention if any of the following occur: Bright red blood or blood clots in the urine (if a new symptom) Weakness, dizziness or fainting New groin, abdominal or back pain Fever of 100.4F (38C) or higher, or as directed by your healthcare provider Repeated vomiting Bleeding from nose, gums or easy bruising Your exam today shows that you are . During , it is normal to develop tender swollen breasts, frequent urination and mild vaginal discharge. During the first three months, nausea is common. Guidelines For A Healthy : To ensure that your baby is born healthy there are certain things that you can do: When you feel tired, you should REST. This is especially true in the later months of . Your body needs more FLUIDS than you may be used to: You should drink 8-10 glasses of juice, milk or water. Eat well-balanced MEALS at regular intervals to supply your body with enough protein. You can expect a total weight gain of about 30 pounds during the . Do not try to diet or lose weight while you are . Because of the extra nutritional needs during , take one VITAMIN daily. Do not take any other MEDICINE during your (prescribed or jzav-ixt-euwname) unless your doctor specifically recommends this. Many drugs can have harmful effects on the growing baby. If NAUSEA or VOMITING become a problem, avoid greasy and fried foods. Eat several smaller meals throughout the day rather than three large meals. If you SMOKE, you must stop. The nicotine you breathe in goes right to the baby. Stay away from ALCOHOL, even in moderate amounts. Daily drinking will harm your baby and can cause permanent brain damage. RECREATIONAL DRUGS are harmful, especially cocaine, crack, and heroin. Marijuana should also be avoided. If you were using recreational drugs or prescribed medicine when you found out that you were , talk to your doctor about possible effects on the fetus. Follow Up: Call to arrange for care. This can be provided by your family doctor, an wet pan mixer ( specialist) or a primary care clinic. Get Prompt Medical Attention if any of the following occur: Vaginal bleeding Moderate or severe abdominal or back pain Excessive vomiting, unable to keep any fluids down for six hours Burning with urination Headache, dizziness or rapid weight gain Your exam today shows that you are . During , it is normal to develop tender swollen breasts, frequent urination and mild vaginal discharge. During the first three months, nausea is common. Guidelines For A Healthy : To ensure that your baby is born healthy there are certain things that you can do: When you feel tired, you should REST. This is especially true in the later months of . Your body needs more FLUIDS than you may be used to: You should drink 8-10 glasses of juice, milk or water. Eat well-balanced MEALS at regular intervals to supply your body with enough protein. You can expect a total weight gain of about 30 pounds during the . Do not try to diet or lose weight while you are . Because of the extra nutritional needs during , take one VITAMIN daily. Do not take any other MEDICINE during your (prescribed or [id number]-[id number]-[id number]) unless your doctor specifically recommends this. Many drugs can have harmful effects on the growing baby. If NAUSEA or VOMITING become a problem, avoid greasy and fried foods. Eat several smaller meals throughout the day rather than three large meals. If you SMOKE, you must stop. The nicotine you breathe in goes right to the baby. Stay away from ALCOHOL, even in moderate amounts. Daily drinking will harm your baby and can cause permanent brain damage. RECREATIONAL DRUGS are harmful, especially cocaine, crack, and heroin. Marijuana should also be avoided. If you were using recreational drugs or prescribed medicine when you found out that you were , talk to your doctor about possible effects on the fetus. Follow Up: Call to arrange for care. This can be provided by your family doctor, an wet pan mixer ( specialist) or a primary care clinic. Get Prompt Medical Attention if any of the following occur: Vaginal bleeding Moderate or severe abdominal or back pain Excessive vomiting, unable to keep any fluids down for six hours Burning with urination Headache, dizziness or rapid weight gain You have been given the following additional information: Hematuria , New Dx , New Dx (Electronically signed by Lisa Thomas P.A.-C 07/10/2016 19:48)
--- NOTE | 2016-07-10 19:48 | ED MED RECONCILIATION SUMMARY ---
Patient: MAYCOL POTTS Medication Reconciliation Report [facility] VisitID: [id number] [address] [place] [address] 31y, F Registration Date/Time: 07/10/2016 Weight: 90.7 kg Height/Length: 64 in. BMI: 34.3 ALLERGIES: No Known Drug Allergy The patient's Home Medications are listed below: THE FOLLOWING MEDICATIONS NEED TO BE RECONCILED: Vitamins Oral The source(s) of the original Home Medication information: Not obtained. The following Medications were given to the patient in the Emergency Department: None. The following Medications were prescribed to the patient: Take acetaminophen (Tylenol, Datril, etc.) according to label instructions. Available over the counter. -- Lisa Thomas, P.A.-C Zofran (orally disintegrating tablets) 4 mg: take 1 orally every 6 hours for 3 days as needed for nausea. Dispense ten (10). No refill. Substitution is permissible. -- Lisa Thomas, P.A.-C
--- NOTE | 2016-07-10 19:48 | ED MAR SUMMARY ---
..... Medication Administration Record [facility] [address] [place], [place] [id number] Patient: MAYCOL POTTS Visit ID: [id number] 31y, F Weight: 90.7 kg Height/Length: 64 in BMI: 34.3 ALLERGIES: No Known Drug Allergy
== END 2016-07-10 19:42 | disposition home or self-care (01) ==
LOC: ED SRH 17:18
DX: O99.89 Other specified diseases and conditions complicating pregnancy, childbirth and the puerperium (principal); N20.0 Calculus of kidney; Z87.442 Personal history of urinary calculi
CPT/HCPCS: 90001; 90004; 90074; 90100; 90155; 90195; 90197; 91227; 91228; 95059